=== PATIENT | female | born 1985 | race Two or more races ===

== ENCOUNTER → 2019-12-27 | Outpatient (CLI) | payer OTHER | END | disposition home or self-care (01) | LOC: PRENATAL 10:30 | PROVIDERS: ATTEND Obstetrics & Gynecology Maternal & Fetal Medicine | DX: O26.851 Spotting complicating pregnancy, first trimester (principal); O36.80X1 Pregnancy with inconclusive fetal viability, fetus 1; Z36.89 Encounter for other specified antenatal screening ==

== ENCOUNTER 2020-01-02 07:48 | Day surgery (SDC) | payer OTHER | END 2020-01-02 21:00 | disposition home or self-care (01) | LOC: CIR.AMB 07:48 | PROVIDERS: ATTEND Specialist | DX: O02.1 Missed abortion (principal); Z20.828 Contact with and (suspected) exposure to other viral communicable diseases ==

== ENCOUNTER 2022-01-15 05:52 | Day surgery (SDC) | payer OTHER ==
[~2022-01-15] VITALS: Ht 162.6 cm; Wt 102.5 kg
[2022-01-15] MEDS ORDERED: NAPR500T14 PO (08:25)
[2022-01-15] MEDS ORDERED: MORGIDOX100 MG PO (08:25)
== END 2022-01-15 12:30 | disposition home or self-care (01) ==
LOC: CIR.AMB 05:52
PROVIDERS: ATTEND Obstetrics & Gynecology
DX: N92.0 Excessive and frequent menstruation with regular cycle (principal); N84.0 Polyp of corpus uteri; D25.0 Submucous leiomyoma of uterus; Z20.822 Contact with and (suspected) exposure to COVID-19; Z86.16 Personal history of COVID-19; N81.10 Cystocele, unspecified

== ENCOUNTER 2023-03-19 04:14 | Inpatient (IN) | payer OTHER ==
[~2023-03-19] VITALS: Ht 162.6 cm; Wt 3.2 kg
[~2023-03-19 04:14] MED LIST: MORGIDOX100 MG PO; NAPR500T14 PO
[2023-03-20 07:45] LABS: HEMOGLOBIN 10.5 g/dL (12.0-15.00); MEAN CELL VOLUME 80.2 fL (80.00-100.00); MEAN CORPUSCULAR HEMOGLOBIN 28.1 pg (27.00-32.0); MEAN CORPUSCULAR HGB CONC 35.1 g/dl (32.0-36.0); PLATELET COUNT 236 K/uL (150-450); RED BLOOD COUNT 3.74 M/uL (4.00-6.00); RED CELL DISTRIBUTION WIDTH 14.1 % (11.5-14.5)
== END 2023-03-21 14:08 | disposition home or self-care (01) | DRG 788 ==
LOC: LDR 04:14 → O/R 04:14 → OB/GYN 04:14 → O/R 09:49 → OB/GYN 10:36
PROVIDERS: ADMIT Specialist; ATTEND Specialist
PROC: 4A1HXCZ Monitoring of Products of Conception, Cardiac Rate, External Approach (ICD-10-PCS; 2023-03-19)
PROC: 10D00Z1 Extraction of Products of Conception, Low, Open Approach (ICD-10-PCS; principal; 2023-03-19 07:00)
DX: O32.2XX0 Maternal care for transverse and oblique lie, not applicable or unspecified (principal); Z3A.38 38 weeks gestation of pregnancy; Z37.0 Single live birth; Z20.822 Contact with and (suspected) exposure to COVID-19